=== PATIENT | female | born 1950 | race Caucasian/White ===

== ENCOUNTER 2017-02-24 20:22 | Emergency (ER) | payer OTHER, MEDICARE ==
[2017-02-24] MEDS ORDERED: NORMAL SALINE 1000 ML 500 ML IV ONE (20:34)
--- NOTE | 2017-02-24 20:38 | ER Document Report ---
ED General - General Chief Complaint: Probable Seizure Stated Complaint: WEAKNESS Time Seen by Provider: 02/24/17 20:26 Notes: Patient is a 66-year-old female that comes by EMS for chief complaint of lethargy and seizure. Patient was found to be initially hypotensive with systolic in the 80s. Patient comes from home, hospice nurse called EMS, patient is reportedly on hospice and has DNR paperwork, however patient just transferred here from [place] to be close to her daughter. Daughter is not at bedside yet. No fevers, vomiting, only other reported activity is decreased eating and drinking. Past medical history of seizures, CHF, COPD, pacemaker. On Bumex. Past Medical History - General Information source: Patient, Relative - Social History Smoking Status: Never Smoker Frequency of alcohol use: None Drug Abuse: None Lives with: Family Family History: Reviewed & Not Pertinent - Past Medical History Cardiac Medical History: Reports: Hx Congestive Heart Failure Pulmonary Medical History: Reports: Hx COPD Neurological Medical History: Reports: Hx Seizures Review of Systems - Review of Systems Constitutional: See HPI EENT: No symptoms reported Cardiovascular: See HPI Respiratory: No symptoms reported Gastrointestinal: No symptoms reported Genitourinary: No symptoms reported Female Genitourinary: No symptoms reported Musculoskeletal: No symptoms reported Skin: No symptoms reported Hematologic/Lymphatic: No symptoms reported Neurological/Psychological: See HPI Physical Exam - Vital signs Vitals: Pulse Resp BP Pulse Ox 75 10 L 105/60 97 02/24/17 20:25 02/24/17 20:25 02/24/17 20:25 02/24/17 20:25 Interpretation: Normal - General General appearance: Other - patient sleepy but easily arousable In distress: None - HEENT Head: Normocephalic, Atraumatic Eyes: Normal Conjunctiva: Normal Extraocular movements intact: Yes Eyelashes: Normal Pupils: PERRL Nasal: Normal Mouth/Lips: Normal Mucous membranes: Dry Pharynx: Normal Neck: Normal - Respiratory Respiratory status: No respiratory distress Chest status: Nontender Breath sounds: Normal, Decreased air movement - slightly, bilaterally, but clear. No: Wheezing Chest palpation: Normal - Cardiovascular Rhythm: Regular. No: Tachycardia Heart sounds: Normal auscultation, S1 appreciated, S2 appreciated Murmur: No - Abdominal Inspection: Normal Distension: No distension Bowel sounds: Normal Tenderness: Nontender. No: Tender, Guarding Organomegaly: No organomegaly - Back Back: Normal, Nontender - Extremities General upper extremity: Normal inspection, Nontender, Normal ROM, Normal strength General lower extremity: Normal inspection, Nontender, Normal ROM, Normal strength. No: Edema - Neurological Neuro grossly intact: Yes Cognition: Normal Orientation: AAOx4, Disoriented to time, Disoriented to events. 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 Patient is calm, arousable, cooperative, intermittently confused. Patient had her fentanyl patch removed because of uncertain mental status and lack of background information. CT of the head with no acute abnormality, chest x-ray unremarkable, blood work is generally unremarkable with renal insufficiency, mild hyponatremia, no comparison labs. Hemoglobin elevated, suspect she was dehydrated. Given 1.5 liters NS. Urinalysis unremarkable. Daughter arrived, daughter has paperwork showing that patient does not want to be intubated, has CPR, dialysis, or have any extreme life-saving measures. Patient electively went on hospice. Discussed with Dr. Mckeon. Discussed with patient and daughter again. No obvious emergent fixable abnormality is noted that patient would benefit from admission for. Patient wants to be at home, daughter prefers patient to be at home. Discussed expectations on hospice, potential for rapid decline with low blood pressure and comorbidities, discussed follow-up, discussed return situations. Patient is to be seen tomorrow by her physician to have final DNR paperwork done for this state, daughter declined paperwork be done at this time. Patient and daughter state that they would like to go home and state gratefulness for care. - Vital Signs Vital signs: Temp Pulse Resp BP Pulse Ox 75 15 84/55 L 95 02/24/17 20:25 02/25/17 02:30 02/25/17 02:30 02/25/17 02:30 - Laboratory Result Diagrams: 02/24/17 21:15 02/24/17 21:15 Laboratory results interpreted by me: 02/24/17 02/24/17 02/24/17 21:15 21:15 21:35 WBC 11.9 H RBC 5.46 H Hgb 16.1 H Hct 49.2 H Absolute Neutrophils 8.5 H Sodium 126.8 L Chloride 84 L BUN 47 H Creatinine 2.15 H Est GFR ( Amer) 28 L Est GFR (Non-Af Amer) 23 L Glucose 241 H Magnesium 2.7 H Creatine Kinase 559 H Urine Glucose (UA) 50 H Discharge - Discharge Clinical Impression: Confusion Hypotension Qualifiers: Hypotension type: unspecified hypotension type Qualified Code(s): I95.9 - Hypotension, unspecified Condition: Stable Disposition: HOME, SELF-CARE Additional Instructions: Workup does not show any acute abnormalities that are obvious. No obvious fixable process. Her downtrending blood pressure does suggest a more rapid decline. With her provider and hospice. Provide pain medication if needed and as prescribed. Return to emergency department for any concerning symptoms (fever, vomiting, etc ) or if something is not right.
--- NOTE | 2017-02-24 21:09 | RADIOLOGY REPORT (SQ) ---
EXAM DESCRIPTION: CHEST SINGLE VIEW COMPLETED DATE/TIME: 02/24/2017 9:02 pm REASON FOR STUDY: hypotension COMPARISON: February 2009 EXAM PARAMETERS: NUMBER OF VIEWS: One view. TECHNIQUE: Single frontal radiographic view of the chest acquired. RADIATION DOSE: NA LIMITATIONS: None. FINDINGS: LUNGS AND PLEURA: No opacities, masses or pneumothorax. No pleural effusion. MEDIASTINUM AND HILAR STRUCTURES: No masses. Contour normal. HEART AND VASCULAR STRUCTURES: Cardiac silhouette is at the upper limits of normal in size. BONES: No acute findings. HARDWARE: Dual chamber transvenous pacemaker is identified. OTHER: No other significant finding. IMPRESSION: NO ACUTE RADIOGRAPHIC FINDING IN THE CHEST. TECHNICAL DOCUMENTATION: JOB ID: [id number]
[2017-02-24 21:35] LABS: ABSOLUTE BASOPHILS # (AUTO) 0.2 10^3/uL (0.0-0.2); ABSOLUTE EOSINOPHILS # (AUTO) 0.4 10^3/uL (0.0-0.6); ABSOLUTE LYMPHOCYTES (AUTO) 1.9 10^3/uL (0.5-4.7); ABSOLUTE NEUT (AUTO) 8.5 10^3/uL (1.7-8.2); BASOPHILS % (AUTO) 1.3 % (0-2); HEMATOCRIT 49.2 % (36.0-47.0); HEMOGLOBIN 16.1 g/dL (12.0-15.5); HGB HCT DIFFERENCE -0.9; LYMPHOCYTES % (AUTO) 15.7 % (13-45); MEAN CORPUSCULAR HEMOGLOBIN 29.4 pg (27.0-33.4); MEAN CORPUSCULAR HGB CONC 32.7 g/dL (32.0-36.0); MEAN CORPUSCULAR VOLUME 90 fl (80-97); MONOCYTES % (AUTO) 8.7 % (3-13); RED BLOOD COUNT 5.46 10^6/uL (3.72-5.28); RED CELL DISTRIBUTION WIDTH 13.6 % (11.5-14.0); SEGMENTED NEUTROPHILS % (AUTO) 71.3 % (42-78); WHITE BLOOD COUNT 11.9 10^3/uL (4.0-10.5)
[2017-02-24 22:00] LABS: ALANINE AMINOTRANSFERASE 38 U/L (9-52); ALBUMIN 4.1 g/dL (3.5-5.0); ALKALINE PHOSPHATASE 94 U/L (38-126); ANION GAP 13 (5-19); ASPARTATE AMINO TRANSFERASE 31 U/L (14-36); BILIRUBIN,DIRECT 0.4 mg/dL (0.0-0.4); BILIRUBIN,TOTAL 0.7 mg/dL (0.2-1.3); BLOOD UREA NITROGEN 47 mg/dL (7-20); CALCIUM 9.2 mg/dL (8.4-10.2); CARBON DIOXIDE 30 mmol/L (22-30); CHLORIDE 84 mmol/L (98-107); CREATINE KINASE 559 U/L (30-135); CREATININE RESULT 2.15 mg/dL (0.52-1.25); GLUCOSE 241 mg/dL (75-110); MAGNESIUM 2.7 mg/dL (1.6-2.3); POTASSIUM 4.5 mmol/L (3.6-5.0); SODIUM 126.8 mmol/L (137-145); TOTAL PROTEIN 7.1 g/dL (6.3-8.2)
[2017-02-24 22:01] LABS: ALCOHOL < 10 mg/dL (NONE DETECTED)
[2017-02-24 22:09] LABS: CREATINE KINASE MB 3.56 ng/mL (<4.55); TROPONIN I 0.019 ng/mL
[2017-02-24 22:13] LABS: APPEARANCE,URINE CLEAR; BILIRUBIN,URINE NEGATIVE (NEGATIVE); GLUCOSE, URINE 50 mg/dL (NEGATIVE); KETONES,URINE NEGATIVE (NEGATIVE); LEUKOCYTE ESTERASE,URINE NEGATIVE (NEGATIVE); NITRITE,URINE NEGATIVE (NEGATIVE); PROTEIN,URINE NEGATIVE (NEGATIVE); URINE SPECIFIC GRAVITY 1.005; UROBILINOGEN,URINE NEGATIVE mg/dL (<2.0)
[2017-02-24] MEDS ORDERED: NORMAL SALINE 1000 ML 1,000 ML IV ONE (22:34)
--- NOTE | 2017-02-24 23:32 | RADIOLOGY REPORT (SQ) ---
EXAM DESCRIPTION: CT HEAD WITHOUT COMPLETED DATE/TIME: 02/24/2017 11:20 pm REASON FOR STUDY: confusion, fall COMPARISON: None. TECHNIQUE: Axial images acquired through the brain without intravenous contrast. Images reviewed wi th bone, brain and subdural windows. Images stored on PACS. All CT scanners at this facility use dose modulation, iterative reconstruction, and/or weight based d osing when appropriate to reduce radiation dose to as low as reasonably achievable (ALARA). [facility]: Dose Right [facility]: CareDose [facility]: Dose Right [facility]: Teradose 4D [facility]: Dynasil RADIATION DOSE: Up-to-date CT equipment and radiation dose reduction techniques were employed. CTDIv ol: 55.3 mGy. DLP: 996 mGy-cm. mGy. LIMITATIONS: None. FINDINGS: VENTRICLES: Prominent. CEREBRUM: No masses. No hemorrhage. No midline shift. Areas of low density in the white matter mos t likely due to chronic micro-vascular ischemic change. No evidence for acute infarction. CEREBELLUM: No masses. No hemorrhage. No alteration of density. No evidence for acute infarction. EXTRAAXIAL SPACES: Mild age-related involutional change. No fluid collections. No masses. ORBITS AND GLOBE: No intra- or extraconal masses. Normal contour of globe without masses. CALVARIUM: No fracture. PARANASAL SINUSES: No fluid or mucosal thickening. SOFT TISSUES: No mass or hematoma. OTHER: No other significant finding. IMPRESSION: MILD CHRONIC CHANGES OF ATROPHY AND MICROVASCULAR ISCHEMIA. NO ACUTE PROCESS. TECHNICAL DOCUMENTATION: JOB ID: [id number] Quality ID # [id number]: Final reports with documentation of one or more dose reduction techniques (e.g., Au tomated exposure control, adjustment of the mA and/or kV according to patient size, use of iterative reconstruction technique) 2010 [employer]- All Rights Reserved
[2017-02-25 06:32] VITALS: BP 92/59
--- NOTE | 2017-02-25 08:19 | EKG REPORT ---
SEVERITY:- ABNORMAL ECG - A-V DUAL-PACED COMPLEXES W/ SOME INHIBITION : Confirmed by: Carroll Cooley MD 25-Feb-2017 08:18:37
== END 2017-02-25 03:20 | disposition home or self-care (01) ==
LOC: ER 20:22
DX: R41.0 Disorientation, unspecified (principal); I95.9 Hypotension, unspecified; I50.9 Heart failure, unspecified; J44.9 Chronic obstructive pulmonary disease, unspecified; Z51.5 Encounter for palliative care; Z66 Do not resuscitate
CPT/HCPCS: 93005; 99285; 96360; 96361; 36415; 82553; 80307; 82550; 83735; 85025; 80053; 81001; 84484; 71010; 70450; 93010; J7030

== ENCOUNTER 2017-04-07 17:53 | Inpatient (IN) | payer MEDICARE, OTHER ==
[2017-04-07] MEDS ORDERED: NORMAL SALINE 1000 ML 1,000 ML IV ONE (18:47)
--- NOTE | 2017-04-07 18:49 | ER Document Report ---
ED Medical Screen (RME) - General Chief Complaint: COPD Exacerbation Stated Complaint: COUGH,CONGESTION,DIZZINESS Time Seen by Provider: 04/07/17 18:46 Notes: Patient presents with shortness of breath and cough. She is also been more confused per family for the last several days. Patient was also noticed to be hypotensive at triage with a systolic blood pressure of 92. Patient states she has felt weaker as well. No vomiting no diarrhea. Patient denies any pain. Patient apparently was just discharged from hospice. Patient has been hospitalized with pneumonia in the last year. TRAVEL OUTSIDE OF THE [place] IN LAST 30 DAYS: No - Related Data Allergies/Adverse Reactions: ciprofloxacin [From Cipro] Allergy (Verified 04/07/17 18:20) morphine Allergy (Verified 04/07/17 18:34) Hives Past Medical History - Social History Frequency of alcohol use: None Drug Abuse: None - Past Medical History Cardiac Medical History: Reports: Hx Congestive Heart Failure Pulmonary Medical History: Reports: Hx COPD Neurological Medical History: Reports: Hx Seizures Renal/ Medical History: Denies: Hx Peritoneal Dialysis Physical Exam - Vital signs Vitals: Temp Pulse Resp BP Pulse Ox 98.7 F 76 18 92/45 L 91 L 04/07/17 18:18 04/07/17 18:18 04/07/17 18:18 04/07/17 18:18 04/07/17 18:18 Course - Vital Signs Vital signs: Temp Pulse Resp BP Pulse Ox 98.7 F 76 18 92/45 L 91 L 04/07/17 18:18 04/07/17 18:18 04/07/17 18:18 04/07/17 18:18 04/07/17 18:18
--- NOTE | 2017-04-07 19:06 | RADIOLOGY REPORT (SQ) ---
EXAM DESCRIPTION: CHEST PA/LAT COMPLETED DATE/TIME: 04/07/2017 6:59 pm REASON FOR STUDY: cough COMPARISON: 03/01/2009 EXAM PARAMETERS: NUMBER OF VIEWS: two views TECHNIQUE: Digital Frontal and Lateral radiographic views of the chest acquired. RADIATION DOSE: NA LIMITATIONS: none FINDINGS: LUNGS AND PLEURA: Stable chronic lung change without new opacities, masses or pneumothorax . No pleural effusion. MEDIASTINUM AND HILAR STRUCTURES: No masses or contour abnormalities. HEART AND VASCULAR STRUCTURES: Heart stable in size. No evidence for failure. BONES: No acute findings. HARDWARE: Dual lead cardiac pacer. OTHER: No other significant finding. IMPRESSION: NO ACUTE CARDIOPULMONARY PROCESS. NO SIGNIFICANT CHANGE FROM PRIOR STUDY. TECHNICAL DOCUMENTATION: JOB ID: [id number] [employer]- All Rights Reserved
[2017-04-07 19:27] LABS: ABSOLUTE BASOPHILS # (AUTO) 0.1 10^3/uL (0.0-0.2); ABSOLUTE EOSINOPHILS # (AUTO) 0.3 10^3/uL (0.0-0.6); ABSOLUTE LYMPHOCYTES (AUTO) 2.7 10^3/uL (0.5-4.7); ABSOLUTE MONOCYTES (AUTO) 1.2 10^3/uL (0.1-1.4); ABSOLUTE NEUT (AUTO) 12.3 10^3/uL (1.7-8.2); BASOPHILS % (AUTO) 0.9 % (0-2); EOSINOPHILS % (AUTO) 2.1 % (0-6); HEMOGLOBIN 17.1 g/dL (12.0-15.5); HGB HCT DIFFERENCE 2.3; LYMPHOCYTES % (AUTO) 16.4 % (13-45); MEAN CORPUSCULAR HEMOGLOBIN 30.7 pg (27.0-33.4); MEAN CORPUSCULAR HGB CONC 34.9 g/dL (32.0-36.0); MEAN CORPUSCULAR VOLUME 88 fl (80-97); MONOCYTES % (AUTO) 7.2 % (3-13); RED BLOOD COUNT 5.59 10^6/uL (3.72-5.28); RED CELL DISTRIBUTION WIDTH 14.2 % (11.5-14.0); SEGMENTED NEUTROPHILS % (AUTO) 73.4 % (42-78); WHITE BLOOD COUNT 16.8 10^3/uL (4.0-10.5)
[2017-04-07 19:29] LABS: VENOUS BLOOD BASE EXCESS 7.2 mmol/L; VENOUS BLOOD HCO3 33.5 mmol/L (20-32); VENOUS BLOOD PCO2 51.7 mmHg (35-63); VENOUS BLOOD PH 7.43 (7.30-7.42)
[2017-04-07 19:46] LABS: ALANINE AMINOTRANSFERASE 34 U/L (9-52); ALBUMIN 4.6 g/dL (3.5-5.0); ALKALINE PHOSPHATASE 126 U/L (38-126); ANION GAP 16 (5-19); ASPARTATE AMINO TRANSFERASE 21 U/L (14-36); BILIRUBIN,DIRECT 0.7 mg/dL (0.0-0.4); BILIRUBIN,TOTAL 1.4 mg/dL (0.2-1.3); BLOOD UREA NITROGEN 54 mg/dL (7-20); CALCIUM 9.4 mg/dL (8.4-10.2); CARBON DIOXIDE 29 mmol/L (22-30); CHLORIDE 74 mmol/L (98-107); POTASSIUM 3.5 mmol/L (3.6-5.0); TOTAL PROTEIN 7.6 g/dL (6.3-8.2)
[2017-04-07 19:49] LABS: APPEARANCE,URINE TURBID; BILIRUBIN,URINE NEGATIVE (NEGATIVE); GLUCOSE, URINE >=500 mg/dL (NEGATIVE); KETONES,URINE NEGATIVE (NEGATIVE); LEUKOCYTE ESTERASE,URINE LARGE (NEGATIVE); NITRITE,URINE NEGATIVE (NEGATIVE); PROTEIN,URINE 100 mg/dL (NEGATIVE); URINE SPECIFIC GRAVITY 1.021; UROBILINOGEN,URINE NEGATIVE mg/dL (<2.0)
[2017-04-07 19:56] LABS: GLUCOSE 520 mg/dL (75-110); SODIUM 118.8 mmol/L (137-145)
[2017-04-07] MEDS ORDERED: NORMAL SALINE 1000 ML 1,000 ML IV PRN (20:14)
[2017-04-07] MEDS ORDERED: INSULIN REG, HUMAN 100 UNIT/ML 3 ML VIAL (PYX) IV ONE (20:14)
[2017-04-07] MEDS ORDERED: CEFTRIAXONE INJ 1000 MG VIAL IV ONE (20:15)
[2017-04-07] MEDS ORDERED: IPRATROPIUM/ALBUTEROL 0.5-2.5 MG/3 ML AMPUL NEB ONE (20:39)
--- NOTE | 2017-04-07 20:44 | ER Document Report ---
ED Respiratory Problem - General Chief Complaint: COPD Exacerbation Stated Complaint: COUGH,CONGESTION,DIZZINESS Time Seen by Provider: 04/07/17 18:46 TRAVEL OUTSIDE OF THE [place] IN LAST 30 DAYS: No - HPI Notes: 66-year-old female with multiple medical problems including COPD, current tobacco use, history of severe CHF for which he has improved and is now off hospice from. Also history of diabetes prior but no longer on insulin as it was not needed. And pacemaker placement. She presents today with shortness of breath and cough increasing over the last 2 weeks. She is having purulent sputum that is green and yellow without hemoptysis. Denies fever. She does have some chest discomfort when she coughs but no persistent chest discomfort and this feels bilateral. She had a seizure yesterday but does have a seizure history and is on Lamictal and Keppra which she has been taking. She has been slightly more "out of it" today. Currently still does not have a local physician and has only been here about 1 month. She does not use home oxygen but uses Symbicort and other medications/nebulizer and rescue inhaler. Blood pressure was notably low which is not completely unusual for her and she has a history of hyponatremia as well. Denies any vomiting or diarrhea. - Related Data Allergies/Adverse Reactions: ciprofloxacin [From Cipro] Allergy (Verified 04/07/17 18:20) morphine Allergy (Verified 04/07/17 18:34) Hives Past Medical History - Social History Smoking Status: Current Every Day Smoker Frequency of alcohol use: None Drug Abuse: None Family History: Reviewed & Not Pertinent Patient has suicidal ideation: No Patient has homicidal ideation: No - Past Medical History Cardiac Medical History: Reports: Hx Congestive Heart Failure Pulmonary Medical History: Reports: Hx COPD Neurological Medical History: Reports: Hx Seizures Renal/ Medical History: Denies: Hx Peritoneal Dialysis Review of Systems - Review of Systems -: Yes All other systems reviewed and negative Physical Exam - Vital signs Vitals: Temp Pulse Resp BP Pulse Ox 98.7 F 76 18 92/45 L 91 L 04/07/17 18:18 04/07/17 18:18 04/07/17 18:18 04/07/17 18:18 04/07/17 18:18 Interpretation: Hypotensive - Notes Notes: GENERAL: VS as per nursing doc. chronically ill appearing, well-nourished and in no acute distress. HEAD: Atraumatic, normocephalic. EYES: Pupils equal round and reactive to light, extraocular movements intact, sclera anicteric, no conjunctival injection or discharge. ENT: Nares patent, oropharynx clear without exudates, moist mucous membranes. NECK: Normal range of motion, supple without lymphadenopathy. LUNGS: Breath sounds equal bilaterally but coarse with mild wheezing. Slightly diminished bilaterally. HEART: Irregularly irregular ABDOMEN: Soft, non-tender BACK: No CVA tenderness. EXTREMITIES: Normal range of motion, no calf tenderness, chronic venous stasis changes. 1+ edema NEUROLOGICAL: Cranial nerves intact. Normal speech. Normal sensory and motor exams. No gross cerebellar abnormalities. PSYCH: Normal mood, normal affect. SKIN: Warm, dry, normal turgor, no lesions noted. Course - Re-evaluation Re-evalutation: 04/07/17 23:25 Dr. Johansen contacted and will contact me back. Patient needs admission for further electrolyte control, reinitiation of insulin. With her history of heart failure, she will need gentle hydration to help with her dehydration, hyponatremia, hyperglycemia. With her sleeping oxygen saturations decreased to 90% on room air, 93% when awake. - Vital Signs Vital signs: Temp Pulse Resp BP Pulse Ox 98.7 F 76 20 116/63 98 04/07/17 18:18 04/07/17 18:18 04/08/17 01:02 04/08/17 01:02 04/08/17 01:02 - Laboratory Result Diagrams: 04/07/17 19:15 04/07/17 19:15 Laboratory results interpreted by me: 04/07/17 04/07/17 04/07/17 19:15 19:15 19:15 WBC 16.8 H RBC 5.59 H Hgb 17.1 H Hct 49.0 H RDW 14.2 H Absolute Neutrophils 12.3 H VBG pH 7.43 H VBG HCO3 33.5 H Sodium 118.8 L* Potassium 3.5 L Chloride 74 L BUN 54 H Creatinine 1.40 H Est GFR ( Amer) 46 L Est GFR (Non-Af Amer) 38 L Glucose 520 H* POC Glucose Total Bilirubin 1.4 H Direct Bilirubin 0.7 H Urine Protein Urine Glucose (UA) Urine Blood Ur Leukocyte Esterase 04/07/17 04/07/17 04/08/17 19:35 22:30 01:24 WBC RBC Hgb Hct RDW Absolute Neutrophils VBG pH VBG HCO3 Sodium Potassium Chloride BUN Creatinine Est GFR ( Amer) Est GFR (Non-Af Amer) Glucose POC Glucose 391 H 391 H Total Bilirubin Direct Bilirubin Urine Protein 100 H Urine Glucose (UA) >=500 H Urine Blood SMALL H Ur Leukocyte Esterase LARGE H - EKG Interpretation by Ut Rhythm: A.Fib - EKG showed atrial fibrillation as jackson rhythm with ventricular paced beats. Right axis deviation. No significant change otherwise from the paced rhythm noted on February 24 of this year. - Consults Johansen Time consulted: 02:16 Consulted provider: will see as inpatient - Requested [facility] as a full admission. Recommended head CT and addition of Zithromax. Discharge - Discharge Clinical Impression: COPD exacerbation, Hyponatremia, Hyperglycemia Condition: Fair Disposition: ADMITTED INPATIENT Admitting Provider: Hospitalist Unit Admitted: [facility]
--- NOTE | 2017-04-07 21:12 | EKG REPORT ---
SEVERITY:- ABNORMAL ECG - AFIB/FLUT AND V-PACED COMPLEXES RIGHT AXIS DEVIATION BORDERLINE T ABNORMALITIES, ANT-LAT LEADS : Confirmed by: Nelson Nguyen 07-Apr-2017 21:11:37
[2017-04-07] MEDS ORDERED: CEFTRIAXONE 2 GM/D5W RTU 2 GM/50 ML RTUPB IV ONE (21:36)
[2017-04-08] MEDS ORDERED: AZITHROMYCIN INJ 500 MG VIAL IV ONE (02:18)
[2017-04-08 02:45] LABS: ANION GAP 17 (5-19); BLOOD UREA NITROGEN 51 mg/dL (7-20); CALCIUM 8.7 mg/dL (8.4-10.2); CARBON DIOXIDE 28 mmol/L (22-30); CHLORIDE 80 mmol/L (98-107); CREATININE RESULT 1.13 mg/dL (0.52-1.25); GLUCOSE 380 mg/dL (75-110); MAGNESIUM 2.2 mg/dL (1.6-2.3)
[2017-04-08] MEDS ORDERED: POTASSIUM CHLORIDE 10 MEQ TABLET.SA PO ONE (03:02)
--- NOTE | 2017-04-08 03:33 | RADIOLOGY REPORT (SQ) ---
EXAM DESCRIPTION: CT HEAD WITHOUT COMPLETED DATE/TIME: 04/08/2017 3:24 am REASON FOR STUDY: Sz COMPARISON: 02/24/2017. TECHNIQUE: Axial images acquired through the brain without intravenous contrast. Images reviewed wi th bone, brain and subdural windows. Images stored on PACS. All CT scanners at this facility use dose modulation, iterative reconstruction, and/or weight based d osing when appropriate to reduce radiation dose to as low as reasonably achievable (ALARA). [facility]: Dose Right [facility]: CareDose [facility]: Dose Right [facility]: Teradose 4D [facility]: Smart SafeBoot RADIATION DOSE: Up-to-date CT equipment and radiation dose reduction techniques were employed. CTDIv ol: 64.6 mGy. DLP: 1163 mGy-cm. mGy. LIMITATIONS: None. FINDINGS: VENTRICLES: Normal size and contour. CEREBRUM: No masses. No hemorrhage. No midline shift. Normal campa/white matter differentiation. N o evidence for acute infarction. Mild white matter microangiopathy. CEREBELLUM: No masses. No hemorrhage. No alteration of density. No evidence for acute infarction. EXTRAAXIAL SPACES: No fluid collections. No masses. Atherosclerosis. ORBITS AND GLOBE: No intra- or extraconal masses. Normal contour of globe without masses. CALVARIUM: No fracture. PARANASAL SINUSES: [id number] bilateral ethmoid mucosal thickening. SOFT TISSUES: No mass or hematoma. OTHER: No other significant finding. IMPRESSION: No acute intracranial findings. Mild ethmoiditis. TECHNICAL DOCUMENTATION: JOB ID: [id number] Quality ID # [id number]: Final reports with documentation of one or more dose reduction techniques (e.g., Au tomated exposure control, adjustment of the mA and/or kV according to patient size, use of iterative reconstruction technique) 2010 [employer]- All Rights Reserved
[2017-04-08] MEDS ORDERED: POTASSIUM CHLORIDE 20 MEQ/15 ML UDCUP PO ONE (05:09)
[2017-04-08] MEDS ORDERED: DIPH/PERTUSS(ACELL)/TETANUS VAC/PF 0.5 ML SYR (>=10YO) IM ONE (05:13)
[2017-04-08] MEDS ORDERED: INSULIN LISPRO 100 UNIT/ML 3 ML VIAL SUBCUT PRN (05:14)
[2017-04-08] MEDS ORDERED: GLUCAGON,HUMAN RECOMB 1 MG INJ IM PRN (05:14)
[2017-04-08] MEDS ORDERED: DEXTROSE 40% GEL 15 GM TUBE PO PRN ×2 (05:14)
[2017-04-08] MEDS ORDERED: DEXTROSE 50%-WATER 25 GM/50 ML DISP.SYRIN IV PRN ×2 (05:14)
[2017-04-08] MEDS ORDERED: GUAIFENESIN SYRP 200 MG/10 ML UDC PO PRN (05:17)
[2017-04-08] MEDS ORDERED: ALBUTEROL SULFATE 0.083% NEB 2.5 MG/3 ML AMPUL NEB PRN (05:17)
[2017-04-08] MEDS ORDERED: PROMETHAZINE HCL 25 MG TABLET PO PRN (05:19)
[2017-04-08] MEDS ORDERED: ACETAMINOPHEN 325 MG TABLET PO PRN (05:19)
[2017-04-08] MEDS ORDERED: PHARMACY COMMUNICATION ORDER MC NR (05:30)
[2017-04-08] MEDS ORDERED: LORAZEPAM INJ 2 MG/1 ML VIAL IV PRN (05:41)
[2017-04-08] MEDS ORDERED: NICOTINE 14 MG/24 HR PATCH.TD24 TD PRN (05:42)
--- NOTE | 2017-04-08 05:45 | PDOC H&P ---
History of Present Illness Admission Date/PCP: 04/08/17 02:27 No PCP Patient complains of: Short of breath History of Present Illness: FABIANO RICHARD is a 66 year old female with underlying non-home O2 dependent COPD, a 1/2-1-1/2 pack a day smoker, atrial fibrillation, on Xarelto for same, history of congestive heart failure, at one time on hospice for same, but apparently with at least partial resolution of same, status post pacemaker implant, chronic hyponatremia, chronic kidney disease, history of type 1 diabetes mellitus, told last year she could stop all hypoglycemic coverage, frequent UTIs, along with seizure disorder who presents to the emergency room for evaluation of above complaints. Patient has been discussed with emergency room physician who evaluated the patient. Describes a 2 week history of slowly progressive shortness of breath, and cough productive of green and yellow sputum. Occasional diarrhea. No nausea vomiting , fever or chills. No dysuria. No prior intubation for respiratory difficulty. No antibiotic use or hospitalization for the past 3 months. Has a cat at home which occasionally scratches her, as it did the other day. Intermittent problems with lower extremity cellulitis. Has been more than 5 years since she last had a tetanus booster. Seizure episode yesterday. Frequent urinary tract infections. Just moved to the area from [place] a month ago to be with family; no primary care provider at this point in time. Dictation via voice recognition software. Laboratory results are listed in [employer] and are reviewed. X-ray summary results are listed below, with full report(s) reviewed. . EKG reviewed and compared to prior tracing from February 24 of this year. Social history/personal habits: Single. Lives with daughter, but is scheduled to move out soon. Retired. Tobacco use as noted above. No alcohol or illicit drug use. Allergies/adverse reactions are listed in [employer] and are reviewed. Home medications initially autopopulated into [employer] may not accurately reflect patient's true medications, dosages, and/or frequencies. ob scrub tech to reconcile medications. Unfortunately, patient not certain of all medications/dosages/frequencies. REVIEW OF SYSTEMS: Constitutional: No fever or chills. Eyes: No vision complaints. ENT: No swallowing problems or complaints. Partial hearing loss. Pulmonary: See history and present illness. Cardiovascular: See history and present illness. Gastrointestinal: See history and present illness. Skin: See history and present illness. Hematologic: Easy bruising. Neurologic: See history and present illness. Musculoskeletal: Joint pain from arthritis. Psychiatric: Mild anxiety and depression. Denies suicidal or homicidal ideation. Endocrine: No current complaints, including polyuria. Genitourinary: No current complaints, including dysuria. 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 5 feet 5-1/2 inches tall. 74.1 kg. BMI 27.2 kg/m. Blood pressure 103/67. Pulse 87 and regular. 97% saturation on 2 L oxygen per nasal cannula. Respirations are 12 and unlabored. Temperature 97.3. Slightly overweight otherwise well-nourished well-developed though somewhat chronically ill-appearing female who appears perhaps a bit older than her stated age. Pleasant awake alert and cooperative. No obvious distress other than perhaps mildly anxious. Skin is warm and dry. No grossly obvious evidence of rash in areas of skin examined. No subcutaneous nodules palpated. See comments under "extremities" below. ENT: Hearing grossly normal to normal conversation. Tongue midline on protrusion pink and slightly tacky. Eyes: No scleral icterus. Pupils equal and reactive to light at 4 mm. [place] conjunctivae. Neck is supple and nontender to gentle active range of motion and palpation. Midline trachea. No palpable thyroid nodule mass enlargement or tenderness. Lymphatic: No palpable cervical or clavicular nodes. Neck and lymphatic exams limited by patient body habitus. Psychiatric: Reasonable insight into acute and chronic medical issues. Oriented to time location and why here. Lungs: Auscultation reveals clear and equal breath sounds bilaterally. No use of accessory respiratory muscles. Cardiovascular: Heart regular rate and rhythm, without gallop murmur or rub. No carotid or abdominal aortic bruits. No ankle or pedal edema. Palpable dorsalis pedis pulses. Abdomen:soft slightly distended nontender with positive bowel sounds. Unable to adequately evaluate abdomen for masses or organomegaly due to distention. Extremities: Feet are warm and dry. No calf tenderness to compression. No grossly obvious visual evidence of calf swelling. Gentle manipulation of lower extremities fails to reveal any obvious evidence of injury or instability to knees hips or ankles. Has several superficial scratches on her right lower leg, with a bit of dried blood around each. No active bleeding. Scant lateral right lower leg discomfort to palpation, but no obvious evidence of radha cellulitis on either lower extremity. Neurologic: Moves upper extremities grossly normally. Patellar reflexes absent. Absent Babinski. Light touch is intact at feet. Dorsiflexion and plantarflexion of feet 5 / 5 and symmetric. Past Medical History Cardiac Medical History: Reports: Atrial Fibrillation, Congestive Heart Failure - History of, Hyperlipidema, Hypertension Denies: DVT, Pulmonary Embolism Pulmonary Medical History: Reports: Chronic Obstructive Pulmonary Disease (COPD) Denies: Asthma, Sleep Apnea EENT Medical History: Reports: Ears - Partial hearing loss Denies: Eyes, Throat Neurological Medical History: Reports: Seizures - Last episode April 06, 2017 Denies: Hemorrhagic CVA, Ischemic CVA Endocrine Medical History: Reports: Diabetes Mellitus Type 1 - History of, Hypothyroidism Denies: Diabetes Mellitus Type 2, Hyperthyroidism Renal/ Medical History: Reports: Other - Frequent urinary tract infections GI Medical History: Reports: Gastroesophageal Reflux Disease Denies: Cirrhosis, Hepatitis, Peptic Ulcer Disease Musculoskeltal Medical History: Reports: Arthritis Skin Medical History: Reports: None Psychiatric Medical History: Reports: Depression, General Anxiety Disorder, Tobacco Dependency Denies: Alcohol Dependency, Substance Abuse Hematology: Reports: Other - Easy bruising Infectious Medical History: Denies: Hepatitis B, Hepatitis C Past Surgical History Past Surgical History: Reports: Cardiac Catheterization - 6, without angioplasty or stent implant., Hysterectomy, Other - Lower extremity stent implant. Social History Information Source: Patient, Emergency Med Personnel, [facility] Records Lives with: Family Smoking Status: Current Every Day Smoker Frequency of Alcohol Use: None Drugs: None - Advance Directive Resuscitation Status: Full Code Surrogate healthcare decision maker:: Daughter Family History Family History: Reviewed & Not Pertinent Parental Family History Reviewed: Yes - Parents of diabetic complications. Children Family History Reviewed: Yes - Daughter with asthma. Sibling(s) Family History Reviewed.: Yes - Surviving sibling is a cancer survivor. Medication/Allergy Home Medications: Aspirin [Ecotrin 81 mg EC Tablet] 81 mg PO DAILY 04/08/17 Bumetanide [Bumex 2 mg Tablet] 2 mg PO BID 04/08/17 Citalopram Hydrobromide [Celexa 40 mg Tablet] 40 mg PO DAILY 04/08/17 Fentanyl [Duragesic 50 Mcg/Hr Transdermal Patch] 1 patch TP Q3D 04/08/17 Gabapentin [Neurontin 300 mg Capsule] 600 mg PO Q8 04/08/17 Hydrocodone/Acetaminophen [[place] 5-325 mg Tablet] 1 tab PO Q6HP PRN 04/08/17 Isosorbide Mononitrate [Imdur 30 mg Tablet.er] 30 mg PO DAILY 04/08/17 Lamotrigine [Lamictal 100 mg Tablet] 100 mg PO DAILY 04/08/17 Levetiracetam [Keppra] 750 mg PO Q12 04/08/17 Levothyroxine Sodium [Synthroid 0.112 mg Tablet] 0.112 mg PO DAILY 04/08/17 Lisinopril [Prinivil 5 mg Tablet] 5 mg PO DAILY 04/08/17 Magnesium Oxide [Mag-Ox 400 mg Tablet] 400 mg PO DAILY 04/08/17 Metolazone [Zaroxolyn 5 mg Tablet] 5 mg PO Q12 04/08/17 Metoprolol Succinate [Toprol Xl 25 mg Tab.sr] 25 mg PO DAILY 04/08/17 Nitroglycerin [Nitrostat] 0.4 ml SL Q5MP PRN 04/08/17 Potassium Chloride [K-Tab ER] 40 meq PO DAILY 04/08/17 Pramipexole Di-HCl [Mirapex 0.5 mg Tablet] 0.5 mg PO DAILY 04/08/17 Rivaroxaban [Xarelto] 20 mg PO DAILY 04/08/17 Sennosides/Docusate Sodium [Senna-S Tablet] 1 tab PO DAILYP PRN 04/08/17 Spironolactone [Aldactone 25 mg Tablet] 25 mg PO DAILY 04/08/17 Allergies/Adverse Reactions: celery Allergy (Verified 04/08/17 05:57) Blisters ciprofloxacin [From Cipro] Allergy (Verified 04/08/17 05:12) corn Allergy (Verified 04/08/17 05:57) Blisters meperidine [From Demerol] Allergy (Verified 04/08/17 05:57) Hives morphine Allergy (Verified 04/08/17 05:12) Hives Physical Exam Vital Signs: Temp Pulse Resp BP Pulse Ox 97.3 F 83 20 108/53 L 93 04/08/17 05:22 04/08/17 05:22 04/08/17 05:22 04/08/17 05:22 04/08/17 05:22 Intake & Output 04/07/17 04/08/17 04/09/17 00:59 00:59 00:59 Weight 74.1 kg Results Impressions: Chest X-Ray 04/07/17 18:46 IMPRESSION: NO ACUTE CARDIOPULMONARY PROCESS. NO SIGNIFICANT CHANGE FROM PRIOR STUDY. Head CT 04/08/17 02:18 IMPRESSION: No acute intracranial findings. Mild ethmoiditis. Assessment & Plan - Diagnosis (1) Hypokalemia Is this a current diagnosis for this admission?: Yes Plan: Potassium replacement with follow-up chemistry. (2) Elevated LFTs Is this a current diagnosis for this admission?: Yes Plan: Uncertain etiology or significance. Follow-up chemistry. (3) Anticoagulated Is this a current diagnosis for this admission?: Yes Plan: Resume home medications as appropriate once these have been determined and reviewed. (4) Seizure disorder Is this a current diagnosis for this admission?: Yes Plan: Seizure precautions. Keppra and Lamictal levels. (5) Cat scratch of right lower leg Qualifiers: Encounter type: initial encounter Qualified Code(s): S80.811A - Abrasion, right lower leg, initial encounter; W55.03XA - Scratched by cat, initial encounter Is this a current diagnosis for this admission?: Yes Plan: Local wound care instructions, including dressing changes. More than 5 years since last tetanus booster; Tdap. (6) CKD (chronic kidney disease), stage III Is this a current diagnosis for this admission?: Yes (7) Atrial fibrillation Qualifiers: Atrial fibrillation type: unspecified Qualified Code(s): I48.91 - Unspecified atrial fibrillation Is this a current diagnosis for this admission?: Yes Plan: Resume home medications as appropriate once these have been determined and reviewed. (8) UTI (urinary tract infection) Qualifiers: Urinary tract infection type: site unspecified Is this a current diagnosis for this admission?: Yes Plan: Blood and urine cultures. Rocephin. (9) Tobacco dependency Is this a current diagnosis for this admission?: Yes Plan: As needed nicotine patch. (10) Diabetes mellitus type II, uncontrolled Qualifiers: Diabetes mellitus complication status: without complication Diabetes mellitus fdc insulin use: with fdc use Qualified Code(s): E11.65 - Type 2 diabetes mellitus with hyperglycemia; Z79.4 - intermodal customer service (current) use of insulin Is this a current diagnosis for this admission?: Yes Plan: Diabetic cardiac prerenal diet. Diabetic education. Accu-Cheks with appropriate sliding scale coverage. (11) COPD exacerbation Is this a current diagnosis for this admission?: Yes Plan: Patient will be admitted under COPD exacerbation protocol. Incentive spirometry twice a day. Scheduled DuoNeb's. As needed albuterol nebs. Prednisone. Antibiotics will consist of Rocephin and intravenous Zithromax.. I strongly encouraged patient to notify staff should patient feel that breathing is worsening. Patient is a full code. I have strongly encouraged patient not to get out of bed without notifying staff , to avoid a fall with injury. Knee high SCDs for DVT prophylaxis, left lower extremity only, due to right lower extremity cat scratches. With patient on Xarelto, no need for lovenox or heparin. Impression and plans were discussed with patient who concurs. Time spent in evaluation and management of patient: 80 minutes. (12) Hyponatremia Is this a current diagnosis for this admission?: Yes Plan: Serial chemistry. - Time Time Spent: Greater than 70 Minutes Anticipated discharge: Home Within: within 48 hours - Inpatient Certification Based on my medical assessment, after consideration of the patient's comorbidities, presenting symptoms, or acuity I expect that the services needed warrant INPATIENT care.: Yes I certify that my determination is in accordance with my understanding of Medicare's requirements for reasonable and necessary INPATIENT services [42 CFR 412.3e].: Yes Medical Necessity: Need Close Monitoring Due to Risk of Patient Decompensation, Need for Nebulizer Therapy and Monitoring of Response, Need for IV Antibiotics, Risk of Complication if Not Cared For in Hospital Post Hospital Care: D/C or Transfer Summary
[2017-04-08 06:22] LABS: ABSOLUTE BASOPHILS # (AUTO) 0.1 10^3/uL (0.0-0.2); ABSOLUTE EOSINOPHILS # (AUTO) 0.4 10^3/uL (0.0-0.6); ABSOLUTE LYMPHOCYTES (AUTO) 1.9 10^3/uL (0.5-4.7); ABSOLUTE MONOCYTES (AUTO) 1.2 10^3/uL (0.1-1.4); ABSOLUTE NEUT (AUTO) 12.9 10^3/uL (1.7-8.2); BASOPHILS % (AUTO) 0.8 % (0-2); EOSINOPHILS % (AUTO) 2.4 % (0-6); HEMATOCRIT 45.7 % (36.0-47.0); HEMOGLOBIN 15.6 g/dL (12.0-15.5); HGB HCT DIFFERENCE 1.1; LYMPHOCYTES % (AUTO) 11.8 % (13-45); MEAN CORPUSCULAR HEMOGLOBIN 30.7 pg (27.0-33.4); MEAN CORPUSCULAR HGB CONC 34.1 g/dL (32.0-36.0); MEAN CORPUSCULAR VOLUME 90 fl (80-97); RED BLOOD COUNT 5.09 10^6/uL (3.72-5.28); RED CELL DISTRIBUTION WIDTH 14.7 % (11.5-14.0); WHITE BLOOD COUNT 16.5 10^3/uL (4.0-10.5)
[2017-04-08 06:42] LABS: ALANINE AMINOTRANSFERASE 30 U/L (9-52); ALBUMIN 3.9 g/dL (3.5-5.0); ALKALINE PHOSPHATASE 112 U/L (38-126); ANION GAP 14 (5-19); ASPARTATE AMINO TRANSFERASE 16 U/L (14-36); BILIRUBIN,DIRECT 0.5 mg/dL (0.0-0.4); BILIRUBIN,TOTAL 0.7 mg/dL (0.2-1.3); BLOOD UREA NITROGEN 46 mg/dL (7-20); CALCIUM 8.7 mg/dL (8.4-10.2); CARBON DIOXIDE 27 mmol/L (22-30); CHLORIDE 82 mmol/L (98-107); CREATININE RESULT 1.04 mg/dL (0.52-1.25); POTASSIUM 3.8 mmol/L (3.6-5.0); SODIUM 123.3 mmol/L (137-145); TOTAL PROTEIN 6.6 g/dL (6.3-8.2)
[2017-04-08 07:00] LABS: GLUCOSE 600 mg/dL (75-110)
[2017-04-08] MEDS ORDERED: IPRATROPIUM/ALBUTEROL 0.5-2.5 MG/3 ML AMPUL NEB SCH (08:00)
[2017-04-08 08:10] VITALS: BP 90/50
[2017-04-08] MEDS ORDERED: INSULIN REG, HUMAN 100 UNIT/ML 3 ML VIAL (PYX) IV ONE (09:30)
[2017-04-08] MEDS ORDERED: HEPARIN SOD (PORCINE) 5,000 UNIT/ML 1 ML SYRINGE SUBCUT SCH (10:00)
[2017-04-08] MEDS ORDERED: PREDNISONE 20 MG TABLET PO SCH (10:00)
[2017-04-08] MEDS ORDERED: BACITRACIN ZINC OINTMENT 15 GM TP SCH (10:00)
[2017-04-08] MEDS ORDERED: SENNOSIDES/DOCUSATE 8.6-50 MG 1 EACH TABLET PO PRN (10:49)
[2017-04-08] MEDS ORDERED: GABAPENTIN 300 MG CAPSULE PO SCH (14:00)
[2017-04-08] MEDS ORDERED: METOLAZONE 5 MG TABLET PO SCH (22:00)
[2017-04-08] MEDS ORDERED: AZITHROMYCIN 500 MG in DEXTROSE 5%-WATER 250 ML IV SCH ×4 (22:00)
[2017-04-08] MEDS ORDERED: FLUTICASONE NASAL SPRAY 50 MCG/SPRY 120 SPRAY/16 GM NASL SCH (22:00)
[2017-04-08] MEDS ORDERED: (PENDING PHARMACY ID) (Levetiracetam [Keppra] 750 MG) PO SCH (22:00)
[2017-04-08] MEDS ORDERED: CEFTRIAXONE 1 GM/D5W RTU 1 GM/50 ML RTUPB IV SCH (22:00)
[2017-04-08] MEDS ORDERED: LEVETIRACETAM ORAL SOLN 500 MG/5 ML UDCUP PO SCH (22:00)
[2017-04-09] MEDS ORDERED: SPIRONOLACTONE 25 MG TABLET PO SCH (10:00)
[2017-04-09] MEDS ORDERED: AZITHROMYCIN 250 MG TABLET PO SCH (10:00)
[2017-04-09] MEDS ORDERED: (PENDING PHARMACY ID) (Citalopram Hydrobromide [Celexa 40 Mg Tablet] 40 MG) PO SCH (10:00)
[2017-04-09] MEDS ORDERED: RIVAROXABAN 10 MG TABLET PO SCH (10:00)
[2017-04-09] MEDS ORDERED: LAMOTRIGINE 100 MG TABLET PO SCH (10:00)
[2017-04-09] MEDS ORDERED: LEVOTHYROXINE SODIUM 0.112 MG TABLET PO SCH (10:00)
[2017-04-09] MEDS ORDERED: ASPIRIN 81 MG TABLET, ENT COATED PO SCH (10:00)
[2017-04-09] MEDS ORDERED: CITALOPRAM HYDROBROMIDE 20 MG TABLET PO SCH (10:00)
[2017-04-09] MEDS ORDERED: POTASSIUM CHLORIDE 10 MEQ TABLET.SA PO SCH (10:00)
[2017-04-09] MEDS ORDERED: (PENDING PHARMACY ID) (Potassium Chloride [K-Tab Er] 40 MEQ) PO SCH (10:00)
[2017-04-09] MEDS ORDERED: MAGNESIUM OXIDE 400 MG TABLET PO SCH (10:00)
[2017-04-09] MEDS ORDERED: ISOSORBIDE MONONITRATE 30 MG TAB.ER.24H PO SCH (10:00)
[2017-04-10 10:06] LABS: LAMOTRIGINE (LAMICTAL) None Detected ug/mL (2.0-20.0)
[2017-04-10 12:31] LABS: LEVETIRACETAM (KEPPRA) 9.4 ug/mL (10.0-40.0)
== END 2017-04-08 11:35 | disposition left against medical advice (07) | DRG 191 ==
LOC: ER 17:53 → EH 04-08 02:27 → UNDOADMIN 04-08 02:27 → EH 04-08 05:12 → 3W 04-08 05:12 → EH 04-08 05:17 → 3W 04-08 05:17
PROVIDERS: ADMIT Family Medicine; ATTEND Family Medicine
DX: J44.1 Chronic obstructive pulmonary disease with (acute) exacerbation (principal); N39.0 Urinary tract infection, site not specified; E87.1 Hypo-osmolality and hyponatremia; E87.6 Hypokalemia; I50.9 Heart failure, unspecified; N18.3 Chronic kidney disease, stage 3 (moderate); I48.91 Unspecified atrial fibrillation; E11.65 Type 2 diabetes mellitus with hyperglycemia; G40.909 Epilepsy, unspecified, not intractable, without status epilepticus; F17.210 Nicotine dependence, cigarettes, uncomplicated; S80.811A Abrasion, right lower leg, initial encounter; W55.03XA Scratched by cat, initial encounter; Z79.01 Long term (current) use of anticoagulants; Z95.0 Presence of cardiac pacemaker
CPT/HCPCS: 36415; 70450; 71020; 80048; 80053; 80175; 80177; 81001; 82803; 82962; 83605; 83735; 85025; 87040; 87086; 87088; 87186; 93005; 93010; 94640; 94799; 96361; 96365; 99285; J0456; J0696; J1815; J3490; J7030; J7620

== ENCOUNTER → 2019-09-14 | Outpatient (CLI) | payer OTHER ==
--- NOTE | 2019-09-14 14:08 | RADIOLOGY REPORT (SQ) ---
EXAM DESCRIPTION: CT LUMBAR SPINE WITHOUT COMPLETED DATE/TIME: 09/14/2019 1:00 pm REASON FOR STUDY: LOW BACK PAIN (M54.5), PAIN IN RIGHT HIP (M25.551) M54.5 LOW BACK PAIN M25.551 P AIN IN RIGHT HIP COMPARISON: None. TECHNIQUE: Axial images acquired through the lumbar spine without intravenous contrast. Images revi ewed with lung, soft tissue and bone windows. Reconstructed coronal and sagittal MPR images reviewe d. All images stored on PACS. All CT scanners at this facility use dose modulation, iterative reconstruction, and/or weight based d osing when appropriate to reduce radiation dose to as low as reasonably achievable (ALARA). [facility]: Dose Right [facility]: CareDose [facility]: Dose Right [facility]: Teradose 4D [facility]: [employer] RADIATION DOSE: CT Rad equipment meets quality standard of care and radiation dose reduction techniq ues were employed. CTDIvol: 32.8 mGy. DLP: 1096 mGy-cm. mGy. LIMITATIONS: None. FINDINGS: SEGMENTATION: Normal. No transitional anatomy. ALIGNMENT: Degenerative convex leftward lumbar curvature VERTEBRAL BODIES: No fractures. No dislocation. No acute findings. DISCS: High-grade multilevel disc space narrowing with vacuum disc phenomenon and vertebral body endp late sclerosis T12-L1: No central or foraminal stenosis L1-L2: No central or foraminal stenosis L2-L3: Mild central canal narrowing results from broad diffuse posterior disc bulge and mild bilatera l facet and ligament hypertrophy. No left foraminal narrowing. High-grade right foraminal narrowing . L3-L4: Moderate to high-grade central canal stenosis results from broad diffuse posterior disc bulge and bony spurring and bulky bilateral facet hypertrophy. This is best shown on axial image 58. Mild left, high-grade right foraminal narrowing. L4-L5: Broad diffuse posterior disc bulge left greater than right and bulky bilateral facet hypertrop hy cause moderate central canal narrowing best shown on axial T2 image 67. No right foraminal narrow ing. High-grade left foraminal narrowing. L5-S1: Broad diffuse posterior disc bulge and bony spurring is present with bulky bilateral facet hyp ertrophy left greater than right. No central or right foraminal narrowing. High-grade left foramina l narrowing. PEDICLES, TRANSVERSE PROCESSES: No fractures. No dislocation. No acute findings. FACETS, POSTERIOR ELEMENTS: No fractures. No dislocation. HARDWARE: None in the spine. VISUALIZED RIBS: No fractures. SOFT TISSUES: No significant or acute finding in adjacent soft tissues. OTHER: No other significant finding. IMPRESSION: Diffuse degenerative changes with multilevel significant central and foraminal stenosis TECHNICAL DOCUMENTATION: JOB ID: [id number] Quality ID # [id number]: Final reports with documentation of one or more dose reduction techniques (e.g., Au tomated exposure control, adjustment of the mA and/or kV according to patient size, use of iterative reconstruction technique) 2010 [employer]- All Rights Reserved Reading location - IP/workstation name: [email or web address]
--- NOTE | 2019-09-14 14:11 | RADIOLOGY REPORT (SQ) ---
EXAM DESCRIPTION: CT RT LOWER EXTREMITY WITHOUT COMPLETED DATE/TIME: 09/14/2019 1:01 pm REASON FOR STUDY: LOW BACK PAIN (M54.5), PAIN IN RIGHT HIP (M25.551) M54.5 LOW BACK PAIN M25.551 P AIN IN RIGHT HIP COMPARISON: None. TECHNIQUE: Non arthrogram CT scan of the right hip performed without intravenous or oral contrast. Images reviewed with soft tissue and bone windows. Reconstructed coronal and sagittal MPR images rev iewed. All images stored on PACS. All CT scanners at this facility use dose modulation, iterative reconstruction, and/or weight based d osing when appropriate to reduce radiation dose to as low as reasonably achievable (ALARA). [facility]: Dose Right [facility]: CareDose [facility]: Dose Right [facility]: Teradose 4D [facility]: [employer] RADIATION DOSE: 27 mGy. LIMITATIONS: None. FINDINGS: Visualized right hemipelvis demonstrates no lytic or blastic lesions. No fracture. Mild vacuum phenomenon right SI joint without bulky bony spurring. Right proximal femur is intact. No fracture. No lytic or blastic lesions. Right hip joint space is well maintained. No labrum calcifications/ossification. No large periartic ular cysts. No significant joint space narrowing or bony spurring. IMPRESSION: NO ACUTE OR SIGNIFICANT FINDINGS IN THE LEFT HIP OR HEMIPELVIS. TECHNICAL DOCUMENTATION: JOB ID: [id number] Quality ID # [id number]: Final reports with documentation of one or more dose reduction techniques (e.g., Au tomated exposure control, adjustment of the mA and/or kV according to patient size, use of iterative reconstruction technique) 2010 [employer]- All Rights Reserved Reading location - IP/workstation name: [email or web address]
== END ==
LOC: RAD 12:38
PROVIDERS: ATTEND Orthopaedic Surgery
DX: M54.5 Low back pain (principal); M25.551 Pain in right hip
CPT/HCPCS: 72131